=== PATIENT | female | born 1965 | race Caucasian/White ===

== ENCOUNTER → 2017-09-20 | Outpatient (CLI) | payer SELFPAY, MEDICAID | END | disposition home or self-care (01) | LOC: US 06:23 | DX: N63.21 Unspecified lump in the left breast, upper outer quadrant (principal) | CPT/HCPCS: 76641 ==

== ENCOUNTER → 2017-10-13 | Outpatient (CLI) | payer OTHER ==
[2017-10-13] MEDS: LIDOCAINE WITH 8.4% SOD BICARB 3 ML DISP.SYRIN. INJ (10:33)
[2017-10-13] MEDS: LIDOCAINE 2%/EPI 1:100,000 20 ML VIAL. IJ (10:34)
== END | disposition home or self-care (01) ==
LOC: MAMMO 07:58
DX: N60.22 Fibroadenosis of left breast (principal)
CPT/HCPCS: 19081; 19085; 77022; 77065; 88305; C1713; J3490